=== PATIENT | male | born 1985 | race Asian ===

== ENCOUNTER 2020-07-03 09:38 | Emergency (ER) | payer MEDICAID, OTHER ==
[~2020-07-03] VITALS: Ht 177.8 cm; Wt 113.4 kg
--- NOTE | 2020-07-03 10:10 | NUR ---
ED Nurse Note: Patient was BIBA RA 41 from parking lot due to OD on unknown substance. Patient presented sleepy, AAO x2, VSS at this time. Patient presented with IV access on his left hand, blood collected sent to lab
--- NOTE | 2020-07-03 10:15 | NUR ---
ED Nurse Note: urine collected via straight cath sent to lab
[2020-07-03 10:29] VITALS: BP 149/94
[2020-07-03 10:30] LABS: BASOPHILS % (AUTO) 1.4 % (0.0-2.0); EOSINOPHILS % (AUTO) 4.3 % (0.0-3.0); HEMOGLOBIN 16.7 G/DL (14.2-18.0); LYMPHOCYTES % (AUTO) 28.3 % (20.0-45.0); MEAN CORPUSCULAR VOLUME 91 FL (80-99); MONOCYTES % (AUTO) 9.6 % (1.0-10.0); NEUTROPHILS % (AUTO) 56.4 % (45.0-75.0); PLATELET COUNT 314 K/UL (150-450); RED BLOOD COUNT 5.37 M/UL (4.70-6.10); RED CELL DISTRIBUTION WIDTH 13.2 % (11.6-14.8); WHITE BLOOD COUNT 9.9 K/UL (4.8-10.8)
[2020-07-03 10:39] LABS: ANION GAP 14 mmol/L (5-15); BLOOD UREA NITROGEN 13 mg/dL (7-18); CALCIUM 9.2 MG/DL (8.5-10.1); CARBON DIOXIDE 30 MMOL/L (21-32); CHLORIDE 103 MMOL/L (98-107); POTASSIUM 3.5 MMOL/L (3.5-5.1); SODIUM 147 MMOL/L (136-145)
[2020-07-03 10:43] LABS: ALANINE AMINOTRANSFERASE 43 U/L (12-78); ALBUMIN 4.4 G/DL (3.4-5.0); ALKALINE PHOSPHATASE 77 U/L (46-116); ASPARTATE AMINO TRANSFERASE 25 U/L (15-37); BILIRUBIN,TOTAL 0.4 MG/DL (0.2-1.0)
[2020-07-03] MEDS ORDERED: LORazepam Inj 2mg/ml 1ml IV ONE (10:45)
--- NOTE | 2020-07-03 10:53 | NUR ---
ED Nurse Note: patient was swabed for COVID sent to lab
--- NOTE | 2020-07-03 10:56 | Diagnostic Imaging Report ---
EXAM: CT Head Without Intravenous Contrast CLINICAL HISTORY: AMS TECHNIQUE: Axial computed tomography images of the head/brain without intravenous contrast. CTDI is 53.40 mGy and DLP is 1179.1 mGy-cm. One or more of the following dose reduction techniques were used: automated exposure control, adjustment of the mA and/or kV according to patient size, use of iterative reconstruction technique. COMPARISON: No relevant prior studies available. FINDINGS: No acute intracranial hemorrhage. No midline shift or mass effect. The territorial honeycutt-white matter differentiation is maintained throughout. Cavum septum pellucidum, incidentally noted. The ventricles and sulci are commensurate with age. The visualized orbits appear grossly unremarkable. The calvarium is intact. The visualized paranasal sinuses and mastoid air cells are grossly clear. IMPRESSION: No acute intracranial hemorrhage, midline shift, or mass effect.
[2020-07-03 12:27] VITALS: BP 136/78
--- NOTE | 2020-07-03 12:34 | Diagnostic Imaging Report ---
Procedure: XRAY Chest 1v Reason for study: Shortness of breath Comparison films: None. FINDINGS: A single one view chest is obtained. Vascularity is normal. The lung moreno are clear bilaterally. There is cardiomegaly. CP angles are sharp. The bony thorax appear unremarkable. IMPRESSION: NO ACUTE CARDIOPULMONARY DISEASE.
--- NOTE | 2020-07-03 13:19 | Emergency Room Report ---
History of Present Illness General Chief Complaint: Overdose Present Illness HPI 35-year-old male here with drug overdose. The patient was found in a parking lot in his car acting erratically. When paramedics arrived the patient admitted to using a heavy amount of cocaine earlier in the day. Here in the emergency department the patient is once again admitted to using cocaine. However he is acting erratically. Unable to answer questions secondary to erratic behavior. Allergies: Coded Allergies: No Known Allergies (Unverified , 07/03/20) COVID-19 Screening Contact w/high risk pt: No Experienced COVID-19 symptoms?: No COVID-19 Testing performed VAN LOADER: No Review of Systems All Other Systems: limited - Erratic behavior Physical Exam Vital Signs Date Time Temp Pulse Resp B/P (MAP) Pulse Ox O2 Delivery O2 Flow Rate FiO2 07/03/20 09:38 95.5 78 20 149/94 (112) 99 Room Air Sp02 EP Interpretation: reviewed, normal General Appearance: non-toxic, other - Agitated, intermittently yelling Head: normocephalic, atraumatic Eyes: bilateral eye normal inspection, bilateral eye PERRL ENT: hearing grossly normal, normal pharynx, no angioedema, normal voice Neck: full range of motion, supple/symm/no masses Respiratory: chest non-tender, lungs clear, normal breath sounds, speaking full sentences Cardiovascular #1: regular rate, rhythm, no edema Cardiovascular #2: 2+ carotid (R), 2+ carotid (L), 2+ radial (R), 2+ radial (L), 2+ dorsalis pedis (R), 2+ dorsalis pedis (L) Gastrointestinal: normal bowel sounds, non tender, soft, non-distended, no guarding, no rebound Rectal: deferred Genitourinary: normal inspection, no CVA tenderness Musculoskeletal: back normal, normal range of motion, gait/station normal, non- tender Neurologic: alert, motor strength/tone normal, sensory intact, responsive, speech normal Psychiatric: memory normal, no suicidal/homicidal ideation, other - Erratic behavior, intermittently yelling Lymphatic: no adenopathy Medical Decision Making Diagnostic Impression: Primary Impression: Drug overdose Additional Impression: Cocaine abuse ER Course Laboratory Tests Test 07/03/20 10:12 White Blood Count 9.9 K/UL (4.8-10.8) Red Blood Count 5.37 M/UL (4.70-6.10) Hemoglobin 16.7 G/DL (14.2-18.0) Hematocrit 49.0 % (42.0-52.0) Mean Corpuscular Volume 91 FL (80-99) Mean Corpuscular Hemoglobin 31.2 PG (27.0-31.0) H Mean Corpuscular Hemoglobin Concent 34.2 G/DL (32.0-36.0) Red Cell Distribution Width 13.2 % (11.6-14.8) Platelet Count 314 K/UL (150-450) Mean Platelet Volume 7.4 FL (6.5-10.1) Neutrophils (%) (Auto) 56.4 % (45.0-75.0) Lymphocytes (%) (Auto) 28.3 % (20.0-45.0) Monocytes (%) (Auto) 9.6 % (1.0-10.0) Eosinophils (%) (Auto) 4.3 % (0.0-3.0) H Basophils (%) (Auto) 1.4 % (0.0-2.0) Sodium Level 147 MMOL/L (136-145) H Potassium Level 3.5 MMOL/L (3.5-5.1) Chloride Level 103 MMOL/L (98-107) Carbon Dioxide Level 30 MMOL/L (21-32) Anion Gap 14 mmol/L (5-15) Blood Urea Nitrogen 13 mg/dL (7-18) Creatinine 1.0 MG/DL (0.55-1.30) Estimated Glomerular Filtration Rate > 60 mL/min (>60) Glucose Level 114 MG/DL (74-106) H Calcium Level 9.2 MG/DL (8.5-10.1) Total Bilirubin 0.4 MG/DL (0.2-1.0) Aspartate Amino Transferase (AST) 25 U/L (15-37) Alanine Aminotransferase (ALT) 43 U/L (12-78) Alkaline Phosphatase 77 U/L (46-116) Total Protein 8.6 G/DL (6.4-8.2) H Albumin 4.4 G/DL (3.4-5.0) Globulin 4.2 g/dL Albumin/Globulin Ratio 1.0 (1.0-2.7) Salicylates Level 1.6 ug/mL (2.8-20) L Urine Opiates Screen Negative (NEGATIVE) Acetaminophen Level < 2 MCG/ML (10-30) L Urine Barbiturates Screen Negative (NEGATIVE) Phencyclidine (PCP) Screen Negative (NEGATIVE) Urine Amphetamines Screen Negative (NEGATIVE) Urine Benzodiazepines Screen Negative (NEGATIVE) Urine Cocaine Screen Positive (NEGATIVE) H Urine Marijuana (THC) Screen Negative (NEGATIVE) Serum Alcohol < 3 mg/dL Microbiology Date/Time Source Procedure Growth Status 07/03/20 10:12 Nasopharynx SARS-CoV-2 RdRp Gene Assay - Final Complete Procedure: CT Head no Contrast EXAM: CT Head Without Intravenous Contrast CLINICAL HISTORY: AMS TECHNIQUE: Axial computed tomography images of the head/brain without intravenous contrast. CTDI is 53.40 mGy and DLP is 1179.1 mGy-cm. One or more of the following dose reduction techniques were used: automated exposure control, adjustment of the mA and/or kV according to patient size, use of iterative reconstruction technique. COMPARISON: No relevant prior studies available. FINDINGS: No acute intracranial hemorrhage. No midline shift or mass effect. The territorial honeycutt-white matter differentiation is maintained throughout. Cavum septum pellucidum, incidentally noted. The ventricles and sulci are commensurate with age. The visualized orbits appear grossly unremarkable. The calvarium is intact. The visualized paranasal sinuses and mastoid air cells are grossly clear. IMPRESSION: No acute intracranial hemorrhage, midline shift, or mass effect. Chest x-ray: No infiltrate/effusion. Mediastinum within normal limits. No consolidations. No free air under the diaphragm. No bony abnormalities 35-year-old male here after drug overdose. The patient was acting erratically on arrival to the emergency department and intermittently yelling. He was refusing answer questions. He was given 1 mg of Ativan with good resolution of his agitation. CT head unremarkable. Chest x-ray normal. Lab work only showed evidence of cocaine in his urine drug screen but otherwise was largely unremarkable. The patient was allowed to rest in the emergency department for several hours until he was clinically sober. On reevaluation the patient was completely awake and alert and sober and admitted to using cocaine. Denied any other drug use. Ambulating throughout the emergency department without difficulty and tolerating p.o. intake. Given resources for drug addiction. Told to follow-up with primary care provider. Discharged in stable condition. Last Vital Signs Date Time Temp Pulse Resp B/P (MAP) Pulse Ox O2 Delivery O2 Flow Rate FiO2 07/03/20 12:27 95.5 88 18 136/78 96 Room Air Disposition: HOME, SELF-CARE Condition: Stable Referrals: [facility] Patient Instructions: Stimulant Use Disorder-Cocaine, Finding Treatment for Addiction Bharat Hitchcock M.D. Jul 03, 2020 13:19
[2020-07-03 13:30] VITALS: BP 136/78
--- NOTE | 2020-07-03 13:36 | NUR ---
ER DISCHARGE NOTE: Patient is cleared to be discharged per ERMD, pt is aox4, on room air, with stable vital signs. pt was given dc and prescription instructions, pt was able to verbalize understanding, pt id band and iv site removed without complications. pt is able to ambulate with steady gait. pt took all belongings.
--- NOTE | 2020-07-04 15:51 | Cardiology Report ---
APPROVED REPORT EKG Measurement Heart [id number] <Conclusion> Normal sinus rhythm with sinus arrhythmia Normal ECG
== END 2020-07-03 13:30 | disposition home or self-care (01) ==
LOC: EDBD 09:38 → EMR 10:00
DX: T40.5X1A Poisoning by cocaine, accidental (unintentional), initial encounter (principal); F14.10 Cocaine abuse, uncomplicated; Y92.481 Parking lot as the place of occurrence of the external cause
CPT/HCPCS: 36415; 70450; 71045; 80053; 80307; 85025; 93005; 96361; 96374; G0480; G0481; J7030; U0002; Z7502; 99284